=== PATIENT | female | born 1960 | race Caucasian/White ===

== ENCOUNTER 2018-03-30 08:01 | Outpatient (CLI) | payer BC ==
[2018-03-30] MEDS ORDERED: IOTHALAMATE MEGLUMINE 50 ML VIAL ONE (08:31)
[2018-03-30] MEDS ORDERED: GADOPENTETATE DIMEGLUMINE 5 ML VIAL IVP ONE ×3 (08:31→11:46)
[2018-03-30] MEDS ORDERED: BUFFERED LIDOCAINE 10 ML SYRINGE IU ONE ×2 (11:46)
[2018-03-30] MEDS ORDERED: IOTHALAMATE MEGLUMINE 50 ML VIAL IVP ONE ×2 (11:46)
--- NOTE | 2018-03-30 17:45 | XRAY Report ---
Reason: ARTHRITIS, SHOULDER Procedure Date: 03/30/2018 Accession Number: [id number] / [id number] Procedure: FL - Arthrogram Needle Placement CPT Code: FULL RESULT: EXAM: RIGHT SHOULDER ARTHROGRAPHIC INJECTION WITH FLUOROSCOPIC GUIDANCE EXAM DATE: 03/30/2018 09:41 AM. CLINICAL HISTORY: Arthritis, shoulder. COMPARISON: Arthrogram shoulder, right 03/30/2018 8:40 AM. TECHNIQUE: The risks, benefits, and alternatives of the procedure were discussed with the patient. All questions were answered. Written and verbal consent were obtained. The glenohumeral joint was marked under fluoroscopy and prepped and draped in a sterile manner. Local anesthesia was performed with 1% lidocaine. A 22-gauge needle was then inserted into the glenohumeral joint. 5 mL of a solution containing 25% 1% lidocaine, 25% iodinated contrast, and a 1:200 dilution of gadolinium contrast in sterile saline was then injected. The needle was removed without immediate complication. Other: None. Number of Images: 1. FINDINGS: Bones and joints: No fracture or subluxation. Injection: Fluoroscopic images demonstrate needle placement and contrast in the glenohumeral joint. No contrast extravasation outside of the glenohumeral joint. Please note that the patient's joint capsule was extremely tight and only 5 mL could be injected. IMPRESSION: Successful fluoroscopically guided arthrographic injection of the shoulder. [facility]
--- NOTE | 2018-03-30 19:33 | MRI Report ---
Reason: ARTHRITIS, SHOULDER Procedure Date: 03/30/2018 Accession Number: [id number] / [id number] Procedure: MRI - Arthrogram Shoulder RT CPT Code: FULL RESULT: EXAM: RIGHT SHOULDER MRI ARTHROGRAM WITH CONTRAST EXAM DATE: 03/30/2018 10:23 AM. CLINICAL HISTORY: Shoulder arthritis. COMPARISON: Radiograph 03/07/2018. TECHNIQUE: Multiplanar, multisequence T1-weighted and fluid-sensitive sequences of the shoulder after an arthrographic injection of dilute gadolinium, dictated under a separate exam. Other: None. FINDINGS: Acromioclavicular Region: The acromion is type 1. Moderate acromioclavicular osteoarthropathy as evidenced by bony and capsular hypertrophy. There is periarticular marrow edema and cyst formation. The coracoacromial and coracoclavicular ligaments are intact. A mild amount of fluid is in the subacromial/subdeltoid bursa. Glenohumeral Region: No subluxation. No loose bodies. Severe cartilage thinning is in the glenohumeral joint. It is associated with severe osteophyte formation. The glenohumeral ligaments and joint capsule are unremarkable. Bone Marrow: No fractures. Multiple cysts are in the greater tuberosity. Periarticular cyst formation is in the glenoid. Labrum: The labrum is thinned but not torn. Biceps Tendon: The long head of the biceps tendon and biceps roseline are intact. Musculature/Rotator Cuff: The subscapularis tendon is unremarkable. The supraspinatus tendon has a partial-thickness, joint-sided tear that is difficult to measure. A large portion of the tendon has perhaps one-third thickness loss but there is a significant amount of fraying that is difficult to measure. Mild infraspinatus tendinosis is seen. The teres minor tendon is intact. No edema or fatty atrophy. Other: The subcutaneous tissues are unremarkable. IMPRESSION: 1. Moderate acromioclavicular osteopathy. 2. Mild subacromial/subdeltoid bursitis. 3. Severe glenohumeral osteoarthritis. 4. Partial tear of the supraspinatus tendon. 5. Mild infraspinatus tendinosis. [facility] MUSCULOSKELETAL RADIOLOGY SECTION
== END 2018-03-30 08:02 | disposition home or self-care (01) ==
LOC: DI 08:01
PROVIDERS: ATTEND Orthopaedic Surgery
DX: M19.011 Primary osteoarthritis, right shoulder (principal); M75.51 Bursitis of right shoulder; M75.101 Unspecified rotator cuff tear or rupture of right shoulder, not specified as traumatic; M67.911 Unspecified disorder of synovium and tendon, right shoulder
CPT/HCPCS: 23350; 73222; 77002; Q9961